=== PATIENT | male | born 1955 | race Hispanic/Latino ===

== ENCOUNTER → 2024-11-21 | Outpatient (CLI) | payer OTHER ==
--- NOTE | 2024-11-21 12:14 | HMCIMG ---
THORACIC SPINE 2VWS HISTORY: Pain COMPARISON: None FINDINGS: 3 images of thoracic spine were obtained. Post cholecystectomy changes are seen. There is straightening of normal lordotic curvature which may be related to muscle spasm or positioning. No loss of vertebral height is seen. No fracture or dislocation is seen. Degenerative changes are seen. IMPRESSION: 1. No fracture is seen.
--- NOTE | 2024-11-21 12:15 | HMCIMG ---
LUMBAR W FLEXION/EXTENSION REASON: VERTEBROGENIC LOW BACK PAIN. COMPARISON: None TECHNIQUE: 4 images of lumbar spine were obtained including flexion and extension views. FINDINGS: Orthopedic fixation plates and screws are seen traversing the L4 and L5 with disc fusion. Vascular calcifications are seen. There is straightening of normal lordotic lumbar curvature which may be related to muscle spasm or positioning. No evidence of fracture or dislocation is seen. IMPRESSION: Degenerative changes are seen. Postop changes. No loss of vertebral height.
== END | disposition home or self-care (01) ==
LOC: RAH 11:12
PROVIDERS: ATTEND Physical Medicine & Rehabilitation
DX: M47.26 Other spondylosis with radiculopathy, lumbar region (principal); M47.814 Spondylosis without myelopathy or radiculopathy, thoracic region; M43.8X5 Other specified deforming dorsopathies, thoracolumbar region; M54.51 Vertebrogenic low back pain; M54.6 Pain in thoracic spine
CPT/HCPCS: 72070; 72114